=== PATIENT | male | born 1970 | race Caucasian/White ===

== ENCOUNTER 2020-07-03 04:40 | Emergency (ER) | payer SELFPAY ==
[~2020-07-03] VITALS: Ht 182.9 cm; Wt 72.6 kg
[2020-07-03] MEDS ORDERED: diphenhdrAMINE HCL 50 MG/1 ML VL ONE (05:13)
[2020-07-03] MEDS ORDERED: HALOPERIDOL LACTATE 5 MG/ML INJ VIAL ONE (05:13)
[2020-07-03] MEDS ORDERED: LORazepam 2MG/ML-1ML VIAL ONE (05:14)
[2020-07-03] MEDS ORDERED: LORazepam 2MG/ML-1ML VIAL IM ONE (05:30)
[2020-07-03] MEDS ORDERED: HALOPERIDOL LACTATE 5 MG/ML INJ VIAL IM ONE (05:30)
[2020-07-03] MEDS ORDERED: diphenhdrAMINE HCL 50 MG/1 ML VL IM ONE (05:30)
[2020-07-03 06:58] LABS: Basophils # (auto) 0.1 10 ^3/uL (0-0.2); Eosinophils # (auto) 0.2 10 ^3/uL (0-0.8); Mean Corpuscular Hemoglobin 25.7 pg (28.0-32.0); Mean Corpuscular Hgb Conc. 32.3 g/dL (32.0-36.0)
[2020-07-03 06:59] LABS: Basophils % (auto) 0.9 % (0.0-2.0); Lymphocytes # (auto) 1.6 10 ^3/uL (0.4-5.4); Mean Corpuscular Volume 79.6 fL (80.0-100.0); Monocytes # (auto) 0.4 10 ^3/uL (0-1.3); Monocytes % (auto) 5.5 % (0.0-12.0); Neutrophils # (auto) 5.3 10 ^3/uL (1.6-8.6); Neutrophils % (auto) 70.6 % (37.0-80.0); Platelet Count (auto) 271 10^3/uL (140-450); Red Blood Cells 3.89 10^6/uL (4.5-5.90); White Blood Cell 7.5 10^3/uL (4.4-10.8)
[2020-07-03 07:14] LABS: Acetaminophen < 2.0 ug/mL (10-30); Salicylate < 1.7 mg/dL (2.8-20.0)
[2020-07-03 07:15] LABS: Calcium 8.4 mg/dL (8.5-10.1)
[2020-07-03 07:18] LABS: Bilirubin, Total 0.2 mg/dL (0.2-1.0); Total Protein 6.9 g/dL (6.4-8.2)
[2020-07-03 10:38] LABS: Urine Bacteria NONE SEEN /hpf (None Seen); Urine Blood 1+ /uL (Negative); Urine Specific Gravity 1.011 (1.001-1.035); Urine WBC 1 /hpf (0 - 3)
[2020-07-03 10:54] LABS: Alcohol, Urine < 3.0 mg/dL (0-10); Barbiturate Scree,Urine NEGATIVE (NEGATIVE); Benzodiazephine Screen, Urine NEGATIVE (NEGATIVE); Cannabinoid Screen, Urine NEGATIVE (NEGATIVE); Opiate Scree,Urine NEGATIVE (NEGATIVE)
[2020-07-03 10:57] LABS: Amphetamine Screen, Urine NEGATIVE (NEGATIVE); Cocaine Screen, Urine NEGATIVE (NEGATIVE); Phencyclidine Screen, Urine NEGATIVE (NEGATIVE)
[2020-07-03] MEDS ORDERED: cloNIDine HCL 0.1 MG TAB PO ONE (16:15)
--- NOTE | 2020-07-04 04:30 | NUR ---
Requested to write [id number] on patient. SOC is not in chart for viewing. Hussain REED called to request refax to ER. Will assess patient when SOC is available for review.
[2020-07-04 06:37] VITALS: BP 166/111
--- NOTE | 2020-07-04 07:30 | NUR ---
Still have not received copy of SOC report. Second request to have copy faxed to us.
== END 2020-07-04 11:02 | disposition left against medical advice (07) ==
LOC: ER 04:40
DX: R45.851 Suicidal ideations (principal)
CPT/HCPCS: 36415; 80053; 80307; 80329; 81001; 85025; 96372; 99285; J1200; J1630; J2060

== ENCOUNTER 2021-09-15 04:13 | Emergency (ER) | payer SELFPAY ==
[~2021-09-15] VITALS: Ht 182.9 cm; Wt 72.6 kg
[2021-09-15] MEDS ORDERED: HYDROcodone-ACET 7.5/325MG TAB PO ONE (04:30)
[2021-09-15] MEDS ORDERED: cloNIDine HCL 0.1 MG TAB PO ONE ×2 (07:15→07:30)
[2021-09-15] MEDS ORDERED: CEPH-509 PO (10:38)
[2021-09-15] MEDS ORDERED: CLIN300C8 PO (10:38)
== END 2021-09-15 13:04 | disposition home or self-care (01) ==
LOC: ER 04:13
DX: M79.671 Pain in right foot (principal); I16.0 Hypertensive urgency; F17.210 Nicotine dependence, cigarettes, uncomplicated
CPT/HCPCS: 73700